=== PATIENT | male | born 1985 | race African-American/Black ===

== ENCOUNTER 2018-07-30 13:59 | Emergency (ER) | payer BC ==
[~2018-07-30] VITALS: Ht 188 cm; Wt 93.9 kg
[~2018-07-30 13:59] MED LIST: DOXYCYCLINE HY100 M3 PO; DULCOLAX5 MG PO; HYCET 7.5 MG-3473 ML PO; IBUPROFEN 600600 M1 PO; NOHOMEMEDICATIONS; NORCO 5-325 TA1 EACH PO; PREDNISONE50 MG PO; TUCKS HEMORROID30 GM RECTAL
[2018-07-30] MEDS ORDERED: PREDNISONE 20 M20 MG PO (14:19)
[2018-07-30] MEDS ORDERED: BENZONATATE200 MG PO (14:20)
[2018-07-30] MEDS ORDERED: VENTOLIN HFA 1818 GM INH (14:20)
[2018-07-30 14:44] LABS: ABSOLUTE NEUTROPHILS 5.8 thou/uL (1.4-8.2); BASOPHILS 0.7 % (0.0-2.0); EOSINOPHILS 0.9 % (0.0-3.0); HEMATOCRIT 47.1 % (42.0-52.0); HEMOGLOBIN 16.3 gm/dL (14.0-18.0); LYMPHOCYTES 29.1 % (24.0-44.0); MCH 31.9 pg (26.0-34.0); MCHC 34.7 g/dL (28.0-37.0); MCV 91.9 fL (80.0-100.0); MONOCYTES 8.9 % (1.0-8.0); PLATELET COUNT 197 thou/uL (150-400); POLYS 60.4 % (36.0-66.0); RBC 5.12 mil/uL (4.50-6.00); RDW 13.4 % (10.5-14.5); WBC 9.6 thou/uL (4.0-11.0)
[2018-07-30 14:56] LABS: CALCIUM 8.9 mg/dL (8.5-10.1); CREATININE 1.2 mg/dL (0.7-1.3); POTASSIUM 3.1 mmol/L (3.5-5.1)
[2018-07-30] MEDS ORDERED: MUCINEX D TABL1 EACH PO (15:00)
[2018-07-30 15:14] VITALS: BP 133/75
== END 2018-07-30 15:28 | disposition home or self-care (01) ==
LOC: ER 13:59
PROVIDERS: Nurse Practitioner Family
DX: J40 Bronchitis, not specified as acute or chronic (principal); F17.210 Nicotine dependence, cigarettes, uncomplicated